=== PATIENT | female | born 1995 | race African-American/Black ===

== ENCOUNTER 2023-10-04 15:11 | Emergency (ER) | payer MEDICAID ==
[~2023-10-04] VITALS: Ht 170.2 cm; Wt 80.0 kg
[2023-10-04 15:16] VITALS: O2SAT 98
[2023-10-04] MEDS: LEVETIRACETAM 1000MG PREMIX 100 ML IV ONE (15:56)
[2023-10-04 16:12] LABS: BASOPHILS % 0.7 % (0.0-2.0); EOSINOPHILS % 0.6 % (0.0-5.0); HEMATOCRIT. 35.9 % (36.0-48.0); HEMOGLOBIN. 11.9 g/dL (12.0-16.0); LYMPHOCYTES % 13.7 % (20.0-50.0); MEAN CORPUSCULAR HEMOGLOBIN 32.7 pg (28.0-32.0); MEAN CORPUSCULAR HGB CONC 33.1 g/dL (31.0-37.0); MEAN CORPUSCULAR VOLUME 98.6 fL (81.0-99.0); MEAN PLATELET VOLUME 10.3 fl (7.4-10.4); MONOCYTES % 7.1 % (2.0-8.0); NEUTROPHILS % 77.9 % (40.0-76.0); PLATELET 173 x1000/uL (130-400); RED BLOOD CELL COUNT 3.64 mill/uL (4.2-5.4); RED CELL DISTRIBUTION WIDTH 12.2 % (11.6-14.6); WHITE BLOOD COUNT 5.7 x1000/uL (4.5-11.0)
[2023-10-04 16:36] LABS: ALANINE AMINOTRANSFERASE 21 IU/L (10-49); ASPARTATE AMINOTRANSFERASE 17 IU/L (<34); BILIRUBIN TOTAL 0.3 mg/dL (0.1-1.0); CALCIUM 9.1 mg/dL (8.7-10.4); CARBAMAZEPINE 10.3 ug/mL (4-12); CARBON DIOXIDE 30 mEq/L (21-32); CHLORIDE 109 mEq/L (98-107); CREATININE 0.7 mg/dL (0.6-1.0); GLUCOSE 101 mg/dL (70-105); POTASSIUM 4.1 mEq/L (3.5-5.1); PROTEIN TOTAL 7.2 g/dL (6.0-8.3); SODIUM 141 mEq/L (136-145); UREA NITROGEN BLOOD 10 mg/dL (9-23)
[2023-10-04 16:59] LABS: HCG SCREEN NEGATIVE
[2023-10-04 17:02] LABS: ETHANOL BLOOD < 10 mg/dL (<10)
[2023-10-04 18:49] VITALS: BP 113/62; PULSE 65; RESP 17; TEMP 98.1
== END 2023-10-04 18:54 | disposition home or self-care (01) ==
LOC: ER 15:28
DX: R56.9 Unspecified convulsions (principal)
CPT/HCPCS: 80053; 80320; 80156; 84703; 85025; 36415; 93005; 96365; 99284; J1953; Z7610 ×3; G0480

== ENCOUNTER 2023-12-24 19:22 | Emergency (ER) | payer MEDICAID, OTHER ==
[~2023-12-24] VITALS: Ht 162.6 cm; Wt 89.5 kg
[2023-12-24 19:29] VITALS: O2SAT 98
[2023-12-24 20:21] LABS: CLARITY URINE TURBID (CLEAR); COLOR URINE YELLOW (YELLOW); GLUCOSE URINE NEGATIVE (NEGATIVE); KETONES URINE NEGATIVE (NEGATIVE); LEUKOCYTE ESTERASE URINE NEGATIVE (NEGATIVE); NITRITE URINE NEGATIVE (NEGATIVE); OCCULT BLOOD URINE NEGATIVE (NEGATIVE); PH URINE 8.5 (4.5-8.0); PROTEIN URINE NEGATIVE (NEGATIVE); SPECIFIC GRAVITY URINE 1.025 (1.005-1.030)
[2023-12-24 20:42] LABS: AMORPHOUS SEDIMENT URINE 2+ /lpf; BACTERIA URINE 3+; RBC URINE 0-2 /hpf (0-2); SQUAMOUS EPITHELIAL CELL URINE 1+ /lpf (RARE/1+); WBC URINE 0-2 /hpf (0-2)
[2023-12-24 21:47] VITALS: BP 135/81; PULSE 71; RESP 18; TEMP 98.6
== END 2023-12-24 21:52 | disposition home or self-care (01) ==
LOC: ER 20:06
DX: R56.9 Unspecified convulsions (principal)
CPT/HCPCS: 81003; 81025; 99283

== ENCOUNTER 2024-02-03 16:01 | Emergency (ER) | payer MEDICAID ==
[~2024-02-03] VITALS: Ht 175.3 cm; Wt 100.0 kg
[~2024-02-03 16:01] MED LIST: ACET-2708 PO; LEVE750T4 MT; TEGXR2 MT; ZONI100C45 MT
[2024-02-03 16:23] VITALS: O2SAT 100
[2024-02-03] MEDS ORDERED: HYDROCODONE/ACETAMINOPHEN 5/325MG TABLET PO ONE (18:15)
[2024-02-03] MEDS ORDERED: ACET-2708 MT (18:54)
[2024-02-03 20:15] VITALS: TEMP 98.5
[2024-02-03 20:18] VITALS: BP 127/79; PULSE 60; RESP 20
[2024-02-03] MEDS: HYDROCODONE/ACETAMINOPHEN 5/325MG TABLET PO NR (20:18)
== END 2024-02-03 20:26 | disposition home or self-care (01) ==
LOC: ER 16:01
DX: K08.89 Other specified disorders of teeth and supporting structures (principal); R56.9 Unspecified convulsions; Z79.899 Other long term (current) drug therapy
CPT/HCPCS: 99283

== ENCOUNTER 2024-03-02 18:47 | Emergency (ER) | payer MEDICAID ==
[~2024-03-02] VITALS: Ht 162.6 cm; Wt 86.1 kg
[~2024-03-02 18:47] MED LIST changes: +ACET-2708 MT
[2024-03-02 19:25] VITALS: BP 134/81; PULSE 64; RESP 16; TEMP 98.7; O2SAT 100
[2024-03-02] MEDS ORDERED: TEGXR2 MT (20:06)
[2024-03-02] MEDS ORDERED: ZONI100C45 MT (20:06)
[2024-03-02] MEDS ORDERED: LEVE750T4 MT (20:06)
== END 2024-03-02 20:37 | disposition home or self-care (01) ==
LOC: ER 18:47
DX: R56.9 Unspecified convulsions (principal); Z76.0 Encounter for issue of repeat prescription
CPT/HCPCS: 99281; 99283

== ENCOUNTER 2024-03-21 10:07 | Emergency (ER) | payer MEDICAID ==
[~2024-03-21] VITALS: Ht 162.6 cm; Wt 83.9 kg
[2024-03-21 11:07] VITALS: O2SAT 100
[2024-03-21] MEDS ORDERED: LEVE750T4 MT (11:17)
[2024-03-21] MEDS ORDERED: CARB200T6 MT (11:17)
[2024-03-21] MEDS ORDERED: ZONI100C45 MT (11:17)
[2024-03-21 11:28] VITALS: BP 120/75; PULSE 74; RESP 18; TEMP 98.2
== END 2024-03-21 11:30 | disposition home or self-care (01) ==
LOC: ER 10:16
DX: G40.909 Epilepsy, unspecified, not intractable, without status epilepticus (principal); Z76.0 Encounter for issue of repeat prescription; Z79.899 Other long term (current) drug therapy
CPT/HCPCS: 99281

== ENCOUNTER 2024-04-07 10:26 | Emergency (ER) | payer MEDICAID ==
[~2024-04-07] VITALS: Ht 167.6 cm; Wt 81.0 kg
[~2024-04-07 10:26] MED LIST changes: +CARB200T6 MT
[2024-04-07 10:35] VITALS: O2SAT 99
[2024-04-07] MEDS ORDERED: CARB200T6 MT (11:17)
[2024-04-07] MEDS ORDERED: LEVE750T4 MT (11:17)
[2024-04-07] MEDS ORDERED: ZONI100C45 MT (11:17)
[2024-04-07 11:27] VITALS: BP 127/71; PULSE 74; RESP 18; TEMP 98.5
== END 2024-04-07 11:27 | disposition home or self-care (01) ==
LOC: ER 10:56
DX: Z76.0 Encounter for issue of repeat prescription (principal); Z88.8 Allergy status to other drugs, medicaments and biological substances
CPT/HCPCS: 99283

== ENCOUNTER 2024-11-03 21:31 | Emergency (ER) | payer MEDICAID ==
[~2024-11-03] VITALS: Ht 162.6 cm; Wt 90.0 kg
[2024-11-03 21:40] VITALS: O2SAT 100
[2024-11-04 02:00] LABS: CLARITY URINE CLEAR (CLEAR); COLOR URINE YELLOW (YELLOW); GLUCOSE URINE NEGATIVE (NEGATIVE); KETONES URINE NEGATIVE (NEGATIVE); LEUKOCYTE ESTERASE URINE NEGATIVE (NEGATIVE); NITRITE URINE NEGATIVE (NEGATIVE); OCCULT BLOOD URINE NEGATIVE (NEGATIVE); PH URINE 6.5 (4.5-8.0); PROTEIN URINE NEGATIVE (NEGATIVE); SPECIFIC GRAVITY URINE 1.019 (1.005-1.030)
[2024-11-04] MEDS: KETOROLAC 15MG/ML VIAL IM ONE (02:09)
[2024-11-04] MEDS: LIDOCAINE 5% PATCH TOP SCH (02:10)
[2024-11-04] MEDS ORDERED: CYCL5TAB3 MT (02:32)
[2024-11-04] MEDS ORDERED: NAPR-1176 MT (02:32)
[2024-11-04] MEDS ORDERED: LIDO700A15 TP (02:32)
[2024-11-04 02:51] VITALS: BP 121/76; PULSE 70; RESP 20; TEMP 36.8; O2SAT 100
== END 2024-11-04 02:52 | disposition home or self-care (01) ==
LOC: ER 21:31
DX: M54.50 Low back pain, unspecified (principal); Z79.1 Long term (current) use of non-steroidal anti-inflammatories (NSAID); Z79.899 Other long term (current) drug therapy; Z88.8 Allergy status to other drugs, medicaments and biological substances
CPT/HCPCS: 99283; 81003; 81025; 96372; J1885; Z7610

== ENCOUNTER 2025-05-28 19:21 | Emergency (ER) | payer MEDICAID ==
[~2025-05-28] VITALS: Ht 165.1 cm; Wt 70.0 kg
[~2025-05-28 19:21] MED LIST changes: +CYCL5TAB3 MT; +LIDO-53 TP; +NAPR-1176 MT
[2025-05-28 19:29] VITALS: O2SAT 96
[2025-05-28 20:50] LABS: BASOPHILS % 0.5 % (0.0-2.0); EOSINOPHILS % 0.0 % (0.0-5.0); HEMATOCRIT. 34.7 % (36.0-48.0); HEMOGLOBIN. 11.5 g/dL (12.0-16.0); LYMPHOCYTES % 9.0 % (20.0-50.0); MEAN PLATELET VOLUME 10.7 fl (7.4-10.4); MONOCYTES % 5.3 % (2.0-8.0); NEUTROPHILS % 85.2 % (40.0-76.0); PLATELET 177 x1000/uL (130-400); RED BLOOD CELL COUNT 3.55 mill/uL (4.2-5.4); RED CELL DISTRIBUTION WIDTH 12.2 % (11.6-14.6)
[2025-05-28 20:56] LABS: CLARITY URINE CLEAR (CLEAR); COLOR URINE YELLOW (YELLOW); GLUCOSE URINE NEGATIVE (NEGATIVE); KETONES URINE 2+ (NEGATIVE); LEUKOCYTE ESTERASE URINE NEGATIVE (NEGATIVE); NITRITE URINE NEGATIVE (NEGATIVE); OCCULT BLOOD URINE NEGATIVE (NEGATIVE); PH URINE 7.5 (4.5-8.0); PROTEIN URINE 1+ (NEGATIVE); SPECIFIC GRAVITY URINE 1.033 (1.005-1.030); UROBILINOGEN URINE 1.0 E.U./dL (0.2-1.0)
[2025-05-28] MEDS: LEVETIRACETAM 500MG PREMIX 100 ML IV ONE (20:57)
[2025-05-28 21:02] LABS: HCG SCREEN NEGATIVE
[2025-05-28 21:03] LABS: CREATININE 0.7 mg/dL (0.6-1.0); UREA NITROGEN BLOOD 6 mg/dL (9-23)
[2025-05-28 21:04] LABS: CARBAMAZEPINE 5.5 ug/mL (4-12)
[2025-05-28 21:05] LABS: ASPARTATE AMINOTRANSFERASE 24 IU/L (<34); BILIRUBIN DIRECT 0.2 mg/dL (<=3.0); BILIRUBIN TOTAL 0.5 mg/dL (0.1-1.0); PROTEIN TOTAL 6.9 g/dL (6.0-8.3)
[2025-05-28 21:09] LABS: BACTERIA URINE RARE; RBC URINE 0-2 /hpf (0-2); SQUAMOUS EPITHELIAL CELL URINE RARE /lpf (RARE/1+); WBC URINE 0-2 /hpf (0-2)
[2025-05-28] MEDS ORDERED: CARB200C7 MT (21:37)
[2025-05-28] MEDS ORDERED: ZONI100C45 MT (21:37)
[2025-05-28] MEDS ORDERED: LEVE750T4 MT (21:37)
[2025-05-28 22:06] VITALS: BP 119/69; PULSE 82; RESP 14; TEMP 37.4; O2SAT 96
== END 2025-05-28 22:05 | disposition home or self-care (01) ==
LOC: ER 19:24
DX: G40.909 Epilepsy, unspecified, not intractable, without status epilepticus (principal); Z79.899 Other long term (current) drug therapy; Z76.0 Encounter for issue of repeat prescription
CPT/HCPCS: 99284; 71045; 80076; 80048; 81003; 81025; 80156; 84703; 85025; 36415; 93005; 96372; J1953

== ENCOUNTER 2025-06-24 11:24 | Emergency (ER) | payer OTHER, MEDICAID ==
[~2025-06-24] VITALS: Ht 170.2 cm; Wt 96.0 kg
[~2025-06-24 11:24] MED LIST changes: +CARB-214 MT; +CARB200C7 MT; -CARB200T6 MT
[2025-06-24 11:26] VITALS: O2SAT 97
[2025-06-24] MEDS: LIDOCAINE 5% PATCH TOP STA (15:31)
[2025-06-24] MEDS: KETOROLAC 30MG/ML VIAL IM ONE (15:31)
[2025-06-24] MEDS: CYCLOBENZAPRINE 10MG TABLET PO ONE (15:31)
[2025-06-24] MEDS: BACITRACIN ZINC OINT UDPKT TOP ONE (15:32)
[2025-06-24] MEDS ORDERED: LIDO700A30 TP (16:04)
[2025-06-24] MEDS ORDERED: IBUP-1455 MT (16:04)
[2025-06-24] MEDS ORDERED: CYCL10TA21 MT (16:04)
[2025-06-24 16:15] VITALS: BP 122/74; PULSE 78; RESP 16; TEMP 36.7; O2SAT 100
== END 2025-06-24 16:25 | disposition home or self-care (01) ==
LOC: ER 11:24
DX: S60.311A Abrasion of right thumb, initial encounter (principal); M54.50 Low back pain, unspecified; M54.2 Cervicalgia; M79.605 Pain in left leg; M79.604 Pain in right leg; Z79.1 Long term (current) use of non-steroidal anti-inflammatories (NSAID); Z79.899 Other long term (current) drug therapy; V43.52XA Car driver injured in collision with other type car in traffic accident, initial encounter; Y93.89 Activity, other specified; Y92.410 Unspecified street and highway as the place of occurrence of the external cause; Y99.8 Other external cause status
CPT/HCPCS: 99284; 81025; 96372; J1885

== ENCOUNTER 2025-09-23 15:27 | Emergency (ER) | payer MEDICAID, OTHER ==
[~2025-09-23] VITALS: Ht 172.7 cm; Wt 100.0 kg
[~2025-09-23 15:27] MED LIST changes: +CYCL10TA21 MT; +IBUP-1455 MT; +LIDO700A30 TP
[2025-09-23 15:34] VITALS: O2SAT 100
[2025-09-23 17:56] VITALS: BP 118/71; PULSE 72; RESP 16; TEMP 36.6; O2SAT 100
== END 2025-09-23 17:57 | disposition home or self-care (01) ==
LOC: ER 15:27
DX: S93.402A Sprain of unspecified ligament of left ankle, initial encounter (principal); G40.901 Epilepsy, unspecified, not intractable, with status epilepticus; Z79.899 Other long term (current) drug therapy; W19.XXXA Unspecified fall, initial encounter; Y93.89 Activity, other specified; Y92.89 Other specified places as the place of occurrence of the external cause; Y99.8 Other external cause status
CPT/HCPCS: 73610; 99283